=== PATIENT | female | born 1955 | race Caucasian/White ===

== ENCOUNTER 2018-07-19 15:02 | Emergency (ER) | payer BC, OTHER ==
--- NOTE | 2018-07-19 15:42 | ERPHSYRPT ---
- History of Present Illness Time Seen by Provider: 07/19/18 15:37 Source: patient Exam Limitations: no limitations Patient Subjective Stated Complaint: patient exepreicing pain in right calf , for a few days and foot and toes have begin turning black Triage Nursing Assessment: pt alert nad orietnedx3, ambulates by self, right foot has some blackish dicoloration, able to feel sensation in bottom of foot nad on toes, Physician History: The patient is a 63-year-old female complaining of right foot discoloration and swelling that began 3 days ago. The discoloration was much worse yesterday. Today the discoloration is almost gone. She talked to her daughter last night who is a nurse and sent her daughter picture of her foot. The daughter wanted her to be seen. The patient went to [facility] and was sent to the ER. The patient has no pain in her foot. At times she will have some pain after sitting behind her right knee. She's had no recent long periods of sitting or car rides. She has no history of DVTs. She takes no blood thinners. Her past medical history is significant for hypertension, hypothyroidism, and sleep problems. Method of Injury: unknown Occurred: days ago (3) Quality: constant Severity of Pain-Max: moderate Severity of Pain-Current: mild Lower Extremities Pain: leg: right, knee: right, foot: right Modifying Factors: Improves With: nothing Associated Symptoms: none Allergies/Adverse Reactions: No Known Drug Allergies Allergy (Unverified 07/19/18 15:16) Home Medications: Amitriptyline HCl 50 mg PO BID 07/19/18 [History] Atenolol/Chlorthalidone [Atenolol-Chlorthalidone 100-25] 1 each PO DAILY [History] Levothyroxine Sodium [Synthroid] 112 mcg PO DAILY 07/19/18 [History] hydroCHLOROthiazide [Hydrochlorothiazide] 12.5 mg PO DAILY 07/19/18 [History] Hx Tetanus, Diphtheria Vaccination/Date Given: Yes Hx Influenza Vaccination/Date Given: Yes Hx Pneumococcal Vaccination/Date Given: Yes Immunizations Up to Date: Yes - Review of Systems Constitutional: No Fever, No Chills Eyes: No Symptoms Ears, Nose, & Throat: No Symptoms Respiratory: No Cough, No Dyspnea Cardiac: Edema, No Chest Pain, No Syncope Abdominal/Gastrointestinal: No Abdominal Pain, No Nausea, No Vomiting, No Diarrhea Genitourinary Symptoms: No Dysuria Musculoskeletal: No Back Pain, No Neck Pain Skin: No Symptoms, Other, No Rash Neurological: No Dizziness, No Focal Weakness, No Sensory Changes Psychological: No Symptoms Endocrine: No Symptoms Hematologic/Lymphatic: No Symptoms Immunological/Allergic: No Symptoms All Other Systems: Reviewed and Negative - Past Medical History Pertinent Past Medical History: Yes Cardiac History: Arrhythmia - Past Surgical History Past Surgical History: No - Social History Smoking Status: Former smoker Drug Use: none Patient Lives Alone: No - Female History Hx Now: No - Nursing Vital Signs Nursing Vital Signs: Initial Vital Signs Temperature 98.9 F 07/19/18 15:02 Pulse Rate 86 07/19/18 15:02 Respiratory Rate 22 07/19/18 15:02 Blood Pressure 156/90 07/19/18 15:02 O2 Sat by Pulse Oximetry 98 07/19/18 15:02 Pain Scale Pain Intensity 0 - Physical Exam General Appearance: alert Eyes, Ears, Nose, Throat Exam: moist mucous membranes Neck Exam: non-tender, supple Cardiovascular/Respiratory Exam: chest non-tender, normal breath sounds, regular rate/rhythm, no respiratory distress Gastrointestinal/Abdominal Exam: non-tender, guarding Back Exam: normal inspection, No vertebral tenderness Hips Exam: bilateral: non-tender, normal inspection Knees Exam: right knee: soft tissue tenderness (mild tenderness to posterior knee), left knee: non-tender, normal inspection Ankle Exam: bilateral ankle: non-tender, normal inspection Foot Exam: bilateral foot: non-tender, normal inspection Neuro/Tendon Exam: normal sensation, normal motor functions Mental Status Exam: alert, oriented x 3, cooperative Skin Exam: normal color, warm, dry SpO2 Interpretation: normal SpO2: 98 Oxygen Delivery: Room Air - Radiology Ultrasound Exam Venous Lower Extremity Ultrasound: discussed w/radiologist (per U/S tech), Other (no DVT) Ordered Tests: Active Orders 24 hr Category Date Time Status VENOUS UNILAT/LIMITED EXTREMIT [US] Stat Exams 07/19/18 Ordered BMP Stat Lab 07/19/18 15:50 Completed CBC W DIFF Stat Lab 07/19/18 15:50 Completed D-DIMER QUANTITATION Stat Lab 07/19/18 15:50 Completed Lab/Rad Data: Laboratory Result Diagrams 07/19/18 15:50 07/19/18 15:50 Laboratory Results 07/19/18 07/19/18 07/19/18 Range/Units 15:50 15:50 15:50 WBC 7.9 (4.0-10.5) K/mm3 RBC 4.01 L (4.1-5.4) M/mm3 Hgb 13.8 (12.0-16.0) gm/dl Hct 40.9 (35-47) % MCV 102.0 H (78-100) fl MCH 34.4 H (26-32) pg MCHC 33.7 (32-36) g/dl RDW 12.5 (11.5-14.0) % Plt Count 262 (150-450) K/mm3 MPV 9.7 H (6-9.5) fl Gran % 62.8 (36.0-66.0) % Eos # (Auto) 0.36 (0-0.5) Absolute Lymphs (auto) 1.85 (1.0-4.6) Absolute Monos (auto) 0.68 (0.0-1.3) Lymphocytes % 23.5 L (24.0-44.0) % Monocytes % 8.7 (0.0-12.0) % Eosinophils % 4.6 (0.00-5.0) % Basophils % 0.4 (0.0-0.4) % Absolute Granulocytes 4.94 (1.4-6.9) Basophils # 0.03 (0-0.4) D-Dimer 232 (215-500) ng/mL Sodium 138 (137-145) mmol/L Potassium 4.0 (3.5-5.1) mmol/L Chloride 100 (98-107) mmol/L Carbon Dioxide 30 (22-30) mmol/L Anion Gap 11.8 (5-15) MEQ/L BUN 17 (7-17) mg/dL Creatinine 0.79 (0.52-1.04) mg/dL Estimated GFR > 60.0 ML/MIN Glucose 120 H (74-106) mg/dL Calcium 9.1 (8.4-10.2) mg/dL - Progress Progress: unchanged Counseled pt/family regarding: lab results, rad results - Departure Time of Disposition: 17:28 Departure Disposition: Home Clinical Impression: Foot swelling Condition: Stable Critical Care Time: No Referrals: BOURGASSER,GENE A [Primary Care Provider] - Additional Instructions: You had right foot swelling and discoloration that has resolved. Your ultrasound did not find any DVT and your lab result was also negative for DVT. Follow up with your PMD as needed.
[2018-07-19 15:59] LABS: BASOPHIL % 0.4 % (0.0-0.4); Basophil (Absolute #) 0.03 (0-0.4); Eosinophil % 4.6 % (0.00-5.0); Eosinophil (Absolute #) 0.36 (0-0.5); Granulocyte Absolute (ANC) 4.94 (1.4-6.9); Granulocytes % 62.8 % (36.0-66.0); Hematocrit 40.9 % (35-47); Hemoglobin 13.8 gm/dl (12.0-16.0); Lymphocyte (Absolute #) 1.85 (1.0-4.6); Lymphocytes % 23.5 % (24.0-44.0); Mean Corpuscular Hemoglobin 34.4 pg (26-32); Mean Corpuscular Hgb Concent. 33.7 g/dl (32-36); Mean Platelet Volume 9.7 fl (6-9.5); Monocyte (Absolute #) 0.68 (0.0-1.3); Monocytes % 8.7 % (0.0-12.0); Platelet Count 262 K/mm3 (150-450); Red Blood Count 4.01 M/mm3 (4.1-5.4); Red Cell Distribution Width 12.5 % (11.5-14.0); White Blood Count 7.9 K/mm3 (4.0-10.5)
[2018-07-19 16:20] LABS: ANION GAP 11.8 MEQ/L (5-15); BLOOD UREA NITROGEN 17 mg/dL (7-17); CHLORIDE 100 mmol/L (98-107); Calcium 9.1 mg/dL (8.4-10.2); Carbon Dioxide 30 mmol/L (22-30); Creatinine 1 0.79 mg/dL (0.52-1.04); Glucose 120 mg/dL (74-106); SODIUM 138 mmol/L (137-145)
[2018-07-19 17:40] VITALS: BP 144/92; PULSE 72; O2SAT 96
--- NOTE | 2018-07-19 22:16 | XRAY ---
Indication: Toes appear blue/purple. 2-dimensional sonogram and color Doppler imaging of the major venous vessels of the right leg was performed. Comparison: None No thrombus seen in the examined deep venous vessels of the right leg including greater saphenous vein. Veins demonstrate normal compressibility. Venous waveforms are normal with and without augmentation. Impression: Right leg negative for DVT. Comment: Preliminary report was given.
== END 2018-07-19 17:39 | disposition home or self-care (01) ==
LOC: ED 15:02
DX: M79.89 Other specified soft tissue disorders (principal); M79.671 Pain in right foot; M25.561 Pain in right knee; Z79.899 Other long term (current) drug therapy
CPT/HCPCS: 36415; 80048; 85025; 85379; 93971; 99284